=== PATIENT | male | born 1980 | race African-American/Black ===

== ENCOUNTER 2018-08-30 09:44 | Emergency (ER) | payer SELFPAY ==
[~2018-08-30] VITALS: Ht 167.6 cm; Wt 82.0 kg
[2018-08-30] MEDS ORDERED: CYCLOBENZAPRINE 10MG TABLET PO ONE (10:15)
[2018-08-30] MEDS ORDERED: KETOROLAC 30MG/ML VIAL IM ONE (10:15)
[2018-08-30 12:06] VITALS: BP 121/60
== END 2018-08-30 12:08 | disposition home or self-care (01) ==
LOC: ER 09:44
DX: M25.562 Pain in left knee (principal)
CPT/HCPCS: 73562; 96372; 99283; J1885